=== PATIENT | female | born 1995 | race Hispanic/Latino ===

== ENCOUNTER 2022-12-16 08:57 | Outpatient (CLI) | payer OTHER | END 2022-12-16 22:06 | disposition home or self-care (01) | LOC: US 08:57 | PROVIDERS: ATTEND Nurse Practitioner | DX: R10.11 Right upper quadrant pain (principal) ==

== ENCOUNTER 2023-04-01 13:51 | Outpatient (CLI) | payer BC | END 2023-04-01 20:00 | disposition home or self-care (01) | LOC: LABW 13:51 | PROVIDERS: ATTEND Specialist | DX: R10.31 Right lower quadrant pain (principal); R19.7 Diarrhea, unspecified | CPT/HCPCS: 82272; 87015; 87045; 87324; 87449; 87899 ==